=== PATIENT | female | born 1985 | race American Indian/Alaskan Native ===

== ENCOUNTER 2021-08-10 19:33 | Emergency (ER) | payer OTHER, MEDICAID ==
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
[2021-08-10 20:24] VITALS: BP 125/77; PULSE 100
--- NOTE | 2021-08-12 10:36 | CR ---
Ankle Min 3V Rt CLINICAL HISTORY: Pain and swelling FINDINGS: The soft tissues appear swollen. No acute fracture or dislocation is noted. Ankle mortise is intact. Impression: Negative
== END 2021-08-10 22:29 | disposition home or self-care (01) ==
LOC: JP.ED 19:33
DX: O9A.211 Injury, poisoning and certain other consequences of external causes complicating pregnancy, first trimester (principal); S91.311A Laceration without foreign body, right foot, initial encounter; V89.2XXA Person injured in unspecified motor-vehicle accident, traffic, initial encounter; Z3A.12 12 weeks gestation of pregnancy
CPT/HCPCS: 73610-26-RT; 73610-RT; 99284-25